=== PATIENT | male | born 2005 | race Hispanic/Latino ===

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

== ENCOUNTER 2025-01-07 03:29 | Emergency (ER) | payer OTHER, SELFPAY ==
--- NOTE | ~2025-01-07 | CT_ITS ---
Non-contrast CT scan of the Abdomen and Pelvis Clinical indication: Left flank pain Technique: 2.5 mm axial scans were obtained through the abdomen and pelvis without intravenous or or al contrast. Dose reduction technique was used on this scan by utilizing automated exposure control a nd iterative reconstruction technique. The dose-length product (DLP) was 1996.69 mGy-cm. Findings: Images through the lung bases reveal no abnormalities. 2 mm distal left ureteral stone present. No significant hydronephrosis. No other stones identified. There is diffuse hepatic steatosis. The spleen, pancreas, gallbladder, and adrenals appear normal. T here is no aortic aneurysm. There is no evidence of bowel obstruction. Images through the pelvis were performed. There is no evidence of ascites or lymphadenopathy. Urinary bladder unremarkable. No pelvic mass seen. No ascites. Impression: 2 mm distal left ureteral stone without significant hydronephrosis. Reviewed, dictated and finalized at [facility]. Impression: 2 mm distal left ureteral stone without significant hydronephrosis.
--- OUTSIDE RECORDS SUMMARY | 2025-01-07 03:31 | XMS_ITS | Referral Summary ---
Author Organization [facility] Address [address] [place] [id number] Care Team Providers Care Wood Drill Operator Name Role Phone No, Physician Primary Care Provider [phone] Allergies No known active allergies Social History Tobacco Use Types Packs/Day Years Used Date Smoking Tobacco: Never Assessed Personal Safety Answer Date Recorded Getting School Help Needed Not on file 08/26 Sex and Gender Information Value Date Recorded Sex Assigned at Not on file Legal Sex Male 12:07 PM VISUAL EDUCATION TEACHER Gender Identity Not on file Sexual Orientation Not on file Last Filed Vital Signs Vital Sign Reading Time Taken Comments Blood Pressure 137/66 08/15/2022 3:51 PM VISUAL EDUCATION TEACHER Pulse 72 08/15/2022 3:51 PM VISUAL EDUCATION TEACHER Temperature 36.8 C (98.2 F) 08/15/2022 12:16 PM VISUAL EDUCATION TEACHER Respiratory Rate 16 08/15/2022 3:51 PM VISUAL EDUCATION TEACHER Oxygen Saturation 99% 08/15/2022 3:51 PM VISUAL EDUCATION TEACHER Inhaled Oxygen Concentration - - Weight 119.8 kg (264 lb 1.8 oz) 023 12:16 PM VISUAL EDUCATION TEACHER Height 185.4 cm (6' 1) 08/15/2022 12:1 6 PM VISUAL EDUCATION TEACHER Body Mass Index 34.85 08/15/2022 12:16 PM VISUAL EDUCATION TEACHER Plan of Treatment Not on file Care Teams Wood Drill Operator Relationship Specialty Start Date End Date No, Physician PCP - General 08/15/22
--- OUTSIDE RECORDS SUMMARY | 2025-01-07 03:31 | XMS_ITS | Clinical Summary ---
Author Organization [facility] Address [address] [place] [id number] Care Team Providers Care Document Scanner Name Role Phone No, Physician Primary Care Provider [phone] Allergies No known active allergies Social History Tobacco Use Types Packs/Day Years Used Date Smoking Tobacco: Never Assessed Personal Safety Answer Date Recorded Getting School Help Needed Not on file 08/26 Sex and Gender Information Value Date Recorded Sex Assigned at Not on file Legal Sex Male 12:07 PM TALENT ACQUISITION COORDINATOR Gender Identity Not on file Sexual Orientation Not on file Last Filed Vital Signs Vital Sign Reading Time Taken Comments Blood Pressure 137/66 08/15/2022 3:51 PM TALENT ACQUISITION COORDINATOR Pulse 72 08/15/2022 3:51 PM TALENT ACQUISITION COORDINATOR Temperature 36.8 C (98.2 F) 08/15/2022 12:16 PM TALENT ACQUISITION COORDINATOR Respiratory Rate 16 08/15/2022 3:51 PM TALENT ACQUISITION COORDINATOR Oxygen Saturation 99% 08/15/2022 3:51 PM TALENT ACQUISITION COORDINATOR Inhaled Oxygen Concentration - - Weight 119.8 kg (264 lb 1.8 oz) 023 12:16 PM TALENT ACQUISITION COORDINATOR Height 185.4 cm (6' 1) 08/15/2022 12:1 6 PM TALENT ACQUISITION COORDINATOR Body Mass Index 34.85 08/15/2022 12:16 PM TALENT ACQUISITION COORDINATOR Plan of Treatment Health Maintenance Due Date Last Done Comments Depression Screening 2003 Hepatitis C Screening 2003 DTaP/Tdap/Td Vaccine (1 - Tdap) 2014 Varicella Vaccines (1 of 2 - 13+ 2-dose series) 2016 HPV Vaccines (1 - Male 3-dos e series) 2018 Meningococcal B Vaccine (1 o f 2 - Standard) 2019 Hepatitis B Screening 2021 Regular Well Visit/Exam 18-64 2021 Covid-19 Vaccine (3 - 2023-2 5 season) 2024 04/04/2021, 03/04/2021 Influenza Vaccine (#1) 2025 Meningococcal Vaccine Aged Out No kayli kenneth eligible based on patient's age to complete this topic Pneumococcal vaccine <65 Aged Out No longer eligible based on patient's age to complete this topic Care Teams Document Scanner Relationship Specialty Start Date End Date No, Physician PCP - General 08/15/22
--- OUTSIDE RECORDS SUMMARY | 2025-01-07 03:31 | XMS_ITS | Encounter Summary ---
Author Organization [facility] Address [address] [place] [id number] Care Team Providers Care Library Aide Name Role Phone Rosana Davila DO Primary Care Provider [phone] Encounter Details Date Type Department Care Team (Latest Contact Info) Description 08/27/2024 MyChart Message Enc [facility] - [place] [address] [place], [place] [id number] Rosana Davila DO [address] [place], [place] [id number] Question about meat intake Social History Tobacco Use Types Packs/Day Years Used Date Smoking Tobacco: Never Smokeless Tobacco: Never Comments:I use vapes Alcohol Use Standard Drinks/Week Comments Yes 2 (1 standard drink = 0.6 oz pur e alcohol) More socially PHQ-2 Answer Date Recorded Patient Health Questionnaire-2 Score 0 08/26/2024 Sex and Gender Information Value Date Recorded Sex Assigned at Male 08/26/2024 8:20 AM INTERLOCKING INSTALLER Legal Sex Male 3:38 PM INTERLOCKING INSTALLER Gender Identity Male 08/26/2024 8:20 AM INTERLOCKING INSTALLER Sexual Orientation Straight 09/23/2024 8: 25 AM CDT documented as of this encounter Plan of Treatment Upcoming Encounters Date Type Department Care Team (Late st Contact Info) Description 01/16/2025 7:40 AM CDT Office Visit [facility] [place] [address] [place], [place] [id number] Rosana Davila DO [address] [place] [address] documented as of this encounter Visit Diagnoses Not on filedocumented in this encounter Additional Health Concerns Assessment Noted Time PHQ-9 Depression Total Score: 1 08/27/19 25 8:23 AM INTERLOCKING INSTALLER documented as of this encounter Care Teams Library Aide Relationship Specialty Start Date End Date Rosana Davila DO [address] [place] [address] PCP - General FAMILY PRACTICE 07/12/24 02/18/25 documented as of this encounter
--- OUTSIDE RECORDS SUMMARY | 2025-01-07 03:31 | XMS_ITS | Clinical Summary ---
Author Organization [facility] Address [address] [place] [address] Care Team Providers Care Canteen Attendant Name Role Phone Unavailable Primary Care Provider Unavailabl e Immunizations Immunization Administration Dates Next Due Covid-19, Mrna, Lnp-s, Pf, 30 Mcg/0.3 Ml Dose (P fizer) 04/04/2021 Social History Tobacco Use Types Packs/Day Years Used Date Smoking Tobacco: Never Assessed Sex and Gender Information Value Date Recorded Sex Assigned at Not on file Legal Sex Male 1:48 PM CDT Gender Identity Not on file Sexual Orientation Not on file Plan of Treatment Health Maintenance Due Date Last Done Comments Hepatitis C Virus (HCV) Screening 2003 TdaP Immunization 2003 Human Papillomavirus (HPV) Immunization (1 - Male 3-dose series) 2018 Meningococcal B Immunization (1 of 2 - Standard) 2019 Hepatitis B Immunization (1 of 3 - 19+ 3-dose series) 2022 Influenza Immunization (#1) 2024 SARS-COV-2 Immunization (3 - 2023-25 season) 2024 04/04/2021, 03/04/2021 Respiratory Syncytial Virus (RSV) Immunization (Adult) (1 - 1-dose 75+ series) 2078 Meningococcal Immunization (ACWY) Aged Out No longer eligible b ased on patient's age to complete this topic Pneumococcal Immunization Combined Aged Out No longer eligible b ased on patient's age to complete this topic Rotavirus Immunization Aged Out No lo nger eligible based on patient's age to complete this topic
--- OUTSIDE RECORDS SUMMARY | 2025-01-07 03:31 | XMS_ITS | Encounter Summary ---
Author Organization [facility] Address [address] [place] [address] Care Team Providers Care Director Specialty Name Role Phone Rosana Davila DO Primary Care Provider [phone] Encounter Details Date Type Department Care Team (Latest Contact Info) Description 09/04/2024 MyChart Message Enc [facility] - [place] [address] [place] [address] oRsana Davila DO [address] [place] [address] Push back Appointment request Social History Tobacco Use Types Packs/Day Years Used Date Smoking Tobacco: Never Smokeless Tobacco: Never Comments:I use vapes Alcohol Use Standard Drinks/Week Comments Yes 2 (1 standard drink = 0.6 oz pur e alcohol) More socially PHQ-2 Answer Date Recorded Patient Health Questionnaire-2 Score 0 08/26/2024 Sex and Gender Information Value Date Recorded Sex Assigned at Male 08/26/2024 8:20 AM STONE UNLOADER Legal Sex Male 3:38 PM STONE UNLOADER Gender Identity Male 08/26/2024 8:20 AM STONE UNLOADER Sexual Orientation Straight 09/23/2024 8: 25 AM CDT documented as of this encounter Plan of Treatment Upcoming Encounters Date Type Department Care Team (Late st Contact Info) Description 01/16/2025 7:40 AM CDT Office Visit [facility] [place] [address] [place] [address] Rosana Davila DO [address] [place] [address] documented as of this encounter Visit Diagnoses Not on filedocumented in this encounter Additional Health Concerns Assessment Noted Time PHQ-9 Depression Total Score: 1 08/27/19 25 8:23 AM STONE UNLOADER documented as of this encounter Care Teams Director Specialty Relationship Specialty Start Date End Date Rosana aDvila DO [address] [place] [address] PCP - General FAMILY PRACTICE 07/12/24 02/18/25 documented as of this encounter
--- OUTSIDE RECORDS SUMMARY | 2025-01-07 03:32 | XMS_ITS | Clinical Summary ---
Author Organization [facility] Address [address] [place] [id number] Care Team Providers Care Bone Process Operator Name Role Phone Rosana Davila Primary Care Provider [phone] Allergies No known active allergies Medications hydrOXYzine (ATARAX) 25 MG tablet 1 tablet (25 mg total) as needed. 4 Active fluticasone propionate (FLONASE) 50 MCG/ACT nasal sprayIndication s:Seasonal allergic rhinitis, unspecified trigger SPRAY 1 SPRAY INTO EACH NOSTRIL DAILY FOR 30 DAYS. 16 mL 5 Active Additional Information Patient not taking.Reported on 12/30/2024 fluticasone propionate (FLONASE) 50 MCG/ACT nasal spray 1 spray by Nasal route daily. 5 Active lurasidone (LATUDA) 40 MG Tab tabletIndicatio ns:Bipolar 1 disorder, depressed, moderate (CMS/HCC HHS/HCC) Take 1 tablet (40 mg total) by mouth daily with breakfast. 90 tablet 1 5 025 Active traZODone (DESYREL) 50 MG tabletIndicatio ns:Bipolar 1 disorder, depressed, moderate (CMS/HCC HHS/HCC) Take 1 tablet (50 mg total) by mouth nightly at bedtime for 30 days. 30 tablet 5 025 Active lurasidone (LATUDA) 20 MG tablet Take 1 tablet (20 mg total) by mouth daily with breakfast. 5 025 Discontin ued(Reord er) Active Problems Problem Noted Date Diagnosed Date Insomnia due to medical condition 12/23/2024 Assessment & Plan (12/30/2024 5:30 PM CDT): See under bipolar disorder Elevated alanine aminotransferase (ALT) level Overview (09/23/2024): Component Ref Range & Units 08/26/24 0846 SODIUM S/P/B 136 - 145 MMOL/L 141 POTASSIUM S/P/B 3.5 - 5.1 MMOL/L 4.2 CHLORIDE S/P/B 98 - 107 MMOL/L 106 CO2 21 - 32 MMOL/L 24.6 GLUCOSE 70 - 99 MG/DL 103 High BUN 7 - 18 MG/DL 13 CREATININE S/P/B 0.70 - 1.30 MG/DL 0.89 CALCIUM S/P/B 8.4 - 10.5 MG/DL 8.9 BILIRUBIN TOTAL S/P/B 0.2 - 1.0 MG/DL 0.6 ALKALINE PHOSPHATASE S/P/B 45 - 115 U/L 82 AST 15 - 37 U/L 26 ALT 16 - 63 U/L 91 High TOTAL PROTEIN S/P/B 6.4 - 8.2 G/DL 6.9 ALBUMIN S/P/B 3.4 - 5.0 G/DL 3.8 ANION GAP 5 - 15 MMOL/L 10.4 Comment: REFERENCE RANGE NOT ESTABLISHED OSMOLALITY (CALC) MOSM/KG 292 Comment: REFERENCE RANGE NOT ESTABLISHED GFR ESTIMATE >90 ML/MIN/1.73 M2 >90 Assessment & Plan (09/23/2024 9:16 AM CDT): Discussed with patient that ALT is likely elevated due to fatty liver. Discussed dietary modifications with patient and exercise recommendations that can help improve this. Will plan to repeat within the next 6 months. Elevated fasting glucose 09/23/2024 Overview (09/23/2024): Component Ref Range & Units 08/26/24 0846 SODIUM S/P/B 136 - 145 MMOL/L 141 POTASSIUM S/P/B 3.5 - 5.1 MMOL/L 4.2 CHLORIDE S/P/B 98 - 107 MMOL/L 106 CO2 21 - 32 MMOL/L 24.6 GLUCOSE 70 - 99 MG/DL 103 High BUN 7 - 18 MG/DL 13 CREATININE S/P/B 0.70 - 1.30 MG/DL 0.89 CALCIUM S/P/B 8.4 - 10.5 MG/DL 8.9 BILIRUBIN TOTAL S/P/B 0.2 - 1.0 MG/DL 0.6 ALKALINE PHOSPHATASE S/P/B 45 - 115 U/L 82 AST 15 - 37 U/L 26 ALT 16 - 63 U/L 91 High TOTAL PROTEIN S/P/B 6.4 - 8.2 G/DL 6.9 ALBUMIN S/P/B 3.4 - 5.0 G/DL 3.8 ANION GAP 5 - 15 MMOL/L 10.4 Comment: REFERENCE RANGE NOT ESTABLISHED OSMOLALITY (CALC) MOSM/KG 292 Comment: REFERENCE RANGE NOT ESTABLISHED GFR ESTIMATE >90 ML/MIN/1.73 M2 >90 Assessment & Plan (09/23/2024 9:23 AM CDT): Fasting blood glucose elevated. Back office hemoglobin A1c ordered and completed today which returned within normal limits at Discussed dietary and exercise recommendations with patient. Vitamin D deficiency 09/23/2024 Overview (09/23/2024): Component Ref Range & Units 08/26/24 0846 VITAMIN D 25 HYDROXY TOTAL S/P/B 30 - 100 NG/ML 17.2 Low Assessment & Plan (09/23/2024 9:25 AM CDT): Recommend patient take vitamin D3 0543-3916 IU daily with food. Pure hypertriglyceridemia 09/23/2024 Overview (09/23/2024): Component Ref Range & Units 08/26/24 0846 CHOLESTEROL <200 MG/DL 181 TRIGLYCERIDES <150 MG/DL 262 High HDL >40 MG/DL 36 Low LDL-C <100 MG/DL 93 VLDL CALCULATION 5 - 28 MG/DL 52 High CHOL/HDL RATIO 0.0 - 4.0 5.0 High LDL/HDL 0.41 - 2.13 2.6 High NON HDL CHOLESTEROL <140 MG/DL 145 High Resulting Agency [facility] Assessment & Plan (09/23/2024 9:24 AM CDT): Discussed diet and exercise recommendations with patient. Bilateral impacted cerumen 09/23/2024 Assessment & Plan (09/23/2024 9:22 AM CDT): Bilateral cerumen impaction. Discussed with patient to avoid Q-tip use. Recommend he use nmxv-ydb-utequwt Debrox eardrops 10 drops in each ear twice daily for 4 days. He can then return for nurse visit for ear irrigation if interested. Reactive cervical lymphadenopathy 09/23/2024 Assessment & Plan (09/23/2024 9:24 AM CDT): Mild, anterior superficial cervical lymphadenopathy palpated on physical exam. Suspect this is related to patient's recent illness and expect to resolve within the next few weeks. Intermittent low back pain 09/23/2024 Overview (09/23/2024): 09/23/2024: He reports he is experiencing back pain since approximately a week after receiving flu vaccine. Denies back pain similar to this past. He describes pain being across his lower back. Reports stretching sometimes helped improve pain. Sometimes takes regular Tylenol unknown dose but 2 pills just as needed which helps get rid of pain. He reports back pain was constant for 2 weeks however has improved and is now only intermittently. He reports there were nights when he had difficulty sleeping due to back pain. He denied any injury prior to experiencing back pain. Assessment & Plan (09/23/2024 9:16 AM CDT): Discussed with patient that his back pain will likely resolve. If back pain worsens and/or fails to improve after another few weeks, discussed with patient that we may proceed with imaging such as with x-ray and/or recommend physical therapy. Discussed with patient that instead of Tylenol, he can use ibuprofen 600 mg oral every 6 hours with food as needed for low back pain. Prediabetes 09/23/2024 Assessment & Plan (09/23/2024 9:31 AM CDT): Hemoglobin A1c returned 5.7%. This was communicated to patient through [facility]. Recommend he participate in diet and exercise recommendations that we discussed at annual physical exam today. Seasonal allergic rhinitis, unspecified trigger 08/26/2024 Overview (08/26/2024): 08/26/2024: He reports he has had watery eyes and nasal symptoms. He denies fever, chills or bodyaches. He reports he occasionally uses hydroxyzine to help him sleep however he has a hard time waking up in the morning. Assessment & Plan (08/26/2024 9:17 AM LOCOMOTIVE OPERATOR): Discussed with patient that he can use gyxz-sfx-tgzexrh second-generation antihistamine like Claritin or Zyrtec or Marivel that will likely not make him sleepy or drowsy. He can also use eelr-iku-pjzeyfu Pataday eyedrops and I recommend he use nasal fluticasone 1 spray daily during this time. He is counseled how to use nasal spray appropriately. Peroneal tendinitis of left lower extremity 08/2024 Overview (08/26/2024): 07/29/2024: He reports he has had pain in his left foot for 1 to 2 months. He reports is gotten worse over time. He denies any memorable trauma or injury. He reports that it is painful when he puts his shoes on. 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 He reports he notices swelling on a regular basis in his left ankle. He denies any overlying rash or color change. He reports that he has not changed shoes recently. He reports he has not been taking anything for pain. 08/26/2024: He reports his pain has improved. Assessment & Plan (08/26/2024 9:22 AM LOCOMOTIVE OPERATOR): Will continue to monitor. Can refer to physical therapy if needed. Assessment & Plan (07/29/2024 7:57 AM LOCOMOTIVE OPERATOR): Based on physical exam and patient's history, I suspect patient has peroneal tendinitis of left foot. He is counseled on mainstays of therapy which includes RICE therapy and can also include physical therapy. He reports he does not want to go to physical therapy at this time due to his busy schedule. He is counseled that he can take up to 600 mg of ibuprofen every 6 hours as needed with food for pain and swelling. Uses marijuana 07/15/2024 Overview (12/23/2024): Initial visit 07/15/2024: He reports he smokes, vapes and uses Gummies on a regular basis. 07/29/2024: He reports he has only smoked 3-4 times since last appointment. 12/23/2024: He reports over the last month he has increased his marijuana use in attempt to help with sleeping. He reports has not helped with his sleeping. Assessment & Plan (12/23/2024 10:00 AM CDT): He is counseled to decrease marijuana use Assessment & Plan (07/29/2024 7:59 AM LOCOMOTIVE OPERATOR): Patient counseled to continue decreasing marijuana use and ideally to not use it at all. Assessment & Plan (07/15/2024 8:10 AM LOCOMOTIVE OPERATOR): He was counseled at length to discontinue marijuana use especially in the setting of bipolar disorder as it can predispose psychosis or other issues. Bipolar 1 disorder, depressed, moderate ([facility]) 07/15/2024 Overview (12/30/2024): Regimen: Lurasidone 40 mg daily Initial visit 07/15/2024: He reports he was diagnosed with bipolar disorder when he was an inpatient in April 2023 at [facility] and started on Depakote 2, 100 mg tablets daily while an inpatient. He reports as an outpatient, he was then started on Lamictal. He reports he took Lamictal up until 2 to 3 months ago as he felt like his brain was numb. He reports he was on sertraline prior to being in patient. 07/15/2024 7:48 AM PHQ-9 Score Patient Health Questionnaire-9 Score 21 07/29/2024: He reports he is taking Latuda 20 mg daily in the evening as he does not routinely eat until approximately 3 PM. He reports it took about 5 days to start feeling in a straight line and feeling less depressed. He reports he is surprised and only took a week to feel different. He reports people such as his girlfriend have noticed his mood change. He reports last night was the first time he had any anxiety but it was mild. He reports he was unable to sleep last night as he worked late and was nervous about missing this appointment but otherwise is sleeping better. He denies suicidal ideation and homicidal ideation. PHQ-9: 07/29/2024 7:32 AM 07/15/2024 7:48 AM PHQ2/PHQ 9 DEPRESSION SCREEN QUESTIONAIRE Little interest or pleasure in doing things Several days Almost all Feeling down, depressed, or hopeless Not at all Several days Patient Health Questionnaire-2 Score 1 4 Trouble falling or staying asleep, or sleeping too much Over half Almost all Feeling tired or having little energy Over half Almost all Poor appetite or overeating Several days Almost all Feeling bad about yourself - or that you are a failure or have let yourself or your family down Not at all Not at all Trouble concentrating on things, such as reading the newspaper or watching television Not at all Almost all Moving or speaking so slowly that other people could have noticed? Or the opposite - being so fidgety or restless that you have been moving around a lot more than usual. Not at all Almost all Thoughts that you would be better off or hurting yourself in some way Not at all Over half Patient Health Questionnaire-9 Score 6 21 How difficult have these problems made it for you to do your work, take care of things at home, or get along with other people? Not difficult at all Very difficult 08/26/2024: He reports he is still doing well on his current dose of lurasidone 20 mg daily. He reports he occasionally has difficulty sleeping and takes hydroxyzine 25 mg as needed. PHQ-9: 08/26/2024 8:23 AM 07/29/2024 7:32 AM PHQ2/PHQ 9 DEPRESSION SCREEN QUESTIONAIRE Little interest or pleasure in doing things Not at all Several days Feeling down, depressed, or hopeless Not at all Not at all Patient Health Questionnaire-2 Score 0 1 Trouble falling or staying asleep, or sleeping too much Several days Over half Feeling tired or having little energy Not at all Over half Poor appetite or overeating Not at all Several days Feeling bad about yourself - or that you are a failure or have let yourself or your family down Not at all Not at all Trouble concentrating on things, such as reading the newspaper or watching television Not at all Not at all Moving or speaking so slowly that other people could have noticed? Or the opposite - being so fidgety or restless that you have been moving around a lot more than usual. Not at all Not at all Thoughts that you would be better off or hurting yourself in some way Not at all Not at all Patient Health Questionnaire-9 Score 1 6 How difficult have these problems made it for you to do your work, take care of things at home, or get along with other people? Not difficult at all Not difficult at all 12/23/2024: He reports he has been experiencing difficulty sleeping over the last 3-4 weeks and has increased his marijuana use. PHQ-9: 12/23/2024 9:46 AM 09/23/2024 8:29 AM PHQ2/PHQ 9 DEPRESSION SCREEN QUESTIONAIRE Little interest or pleasure in doing things Not at all Several days Feeling down, depressed, or hopeless Not at all Not at all Patient Health Questionnaire-2 Score 0 1 Trouble falling or staying asleep, or sleeping too much Almost all Over half Feeling tired or having little energy Almost all Over half Poor appetite or overeating Almost all Over half Feeling bad about yourself - or that you are a failure or have let yourself or your family down Not at all Not at all Trouble concentrating on things, such as reading the newspaper or watching television Not at all Not at all Moving or speaking so slowly that other people could have noticed? Or the opposite - being so fidgety or restless that you have been moving around a lot more than usual. Not at all Not at all Thoughts that you would be better off or hurting yourself in some way Not at all Not at all Patient Health Questionnaire-9 Score 9 7 How difficult have these problems made it for you to do your work, take care of things at home, or get along with other people? Very difficult Not difficult at all 12/30/2024: He reports his mood has improved since increasing Latuda to 40 mg daily. He reports he still having difficulty sleeping and is only able to get 4 to 5 hours a night. PHQ-9: 12/30/2024 5:00 PM 12/23/2024 9:46 AM PHQ2/PHQ 9 DEPRESSION SCREEN QUESTIONAIRE Little interest or pleasure in doing things Several days Not at all Feeling down, depressed, or hopeless Several days Not at all Patient Health Questionnaire-2 Score 2 0 Trouble falling or staying asleep, or sleeping too much Almost all Almost all Feeling tired or having little energy Almost all Almost all Poor appetite or overeating Over half Almost all Feeling bad about yourself - or that you are a failure or have let yourself or your family down Not at all Not at all Trouble concentrating on things, such as reading the newspaper or watching television Not at all Not at all Moving or speaking so slowly that other people could have noticed? Or the opposite - being so fidgety or restless that you have been moving around a lot more than usual. Not at all Not at all Thoughts that you would be better off or hurting yourself in some way Not at all Not at all Patient Health Questionnaire-9 Score 10 9 How difficult have these problems made it for you to do your work, take care of things at home, or get along with other people? Very difficult Very difficult Assessment & Plan (12/30/2024 5:30 PM CDT): Continue lurasidone 40 mg daily. Patient counseled again to take with largest meal of day. Will add trazodone 50 mg nightly. Patient counseled to start taking 30 minutes to 1 hour prior to scheduled bedtime. After few nights, if not effective can increase to 100 mg nightly. Patient counseled that this medication could make him drowsy in the morning and he is to consider his schedule. Assessment & Plan (12/23/2024 10:00 AM CDT): PHQ-9 score has worsened. Patient is having difficulty sleeping. Would like to increase his Latuda to 40 mg daily. Patient is agreeable. Counseled to decrease marijuana use. He is provided resource to help find licensed counseling provider. If he acutely worsens, I would like him to be seen prior to his next appointment. Assessment & Plan (08/26/2024 9:21 AM LOCOMOTIVE OPERATOR): PHQ-9 score has improved again from last visit. Continue lurasidone 20 mg daily. Attempting again to request records from patient's inpatient psych stay at [place] in 2022. Assessment & Plan (07/29/2024 7:58 AM LOCOMOTIVE OPERATOR): Continue Latuda 20 mg daily at this time. Instructed again to take with at least 350 migdalia. Requested records from patient's inpatient psych stay at [facility] in 2022. Assessment & Plan (07/15/2024 8:19 AM LOCOMOTIVE OPERATOR): I suspect sertraline precipitated a manic episode. Will need to request records from hospitalization. At this time, I would like to start lurasidone/Latuda mood stabilizer at lowest dose 20 mg once daily. Patient instructed to take with at least 350 migdalia. He is counseled that this should not contribute to any weight gain. He is counseled to notify the clinic if he experiences any adverse effects. Class 2 obesity without seri ous comorbidity with body mass index (BMI) of 37.0 to 37.9 in adult, unspecified obesity type 07/15/2024 Overview (12/30/2024): Initial visit 07/15/2024: He reports [place] ago he was 100 kg in weight and has gained weight after started on medication. 07/29/2024: He reports he has started going to the gym. He is asking advice on nutrition/working with dietitian. 12/30/2024: He reports he would like to lose weight. Assessment & Plan (12/30/2024 5:31 PM CDT): Discussed dietary and exercise recommendations with patient. Discussed that I could add medication due to prediabetes diagnosis however he is not interested at this time. Patient counseled on decreasing processed foods and sugary beverages and drinks and increase dietary fiber. Assessment & Plan (09/23/2024 9:23 AM CDT): Discussed dietary and exercise recommendations with patient. Assessment & Plan (07/29/2024 7:59 AM LOCOMOTIVE OPERATOR): Counseled that I recommend he work with registered dietitian in order to get more comprehensive guidance on his diet. 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 Baseline labs ordered to be collected fasting. Assessment & Plan (07/15/2024 8:09 AM LOCOMOTIVE OPERATOR): Discussed with him that many medications used in treatment of bipolar disorder can contribute to weight gain. We are starting a new medication that should not contribute to any weight gain. Vaping nicotine dependence, non-tobacco product 07/15/2024 Overview (09/23/2024): 08/26/2024: He reports his vaping is slowing down 09/23/2024: Assessment & Plan (08/26/2024 9:20 AM LOCOMOTIVE OPERATOR): Continue to encourage smoking cessation Rib pain on left side 07/15/2024 Overview (07/29/2024): Initial visit 07/15/2024: He reports that he had a skateboard accident in 2022 which resulted in concussion and ankle injury. He reports he has had pain in the left side of his chest since then. He reports I have a ball. He reports that certain movements cause cramp or painful twisting. He is unsure if he hit his chest during skateboard accident. He reports he was told that as a kid his pain receptors are low. 07/29/2024: He reports this pain has almost completely resolved. Chest x-ray was negative for fracture or abnormality. Assessment & Plan (07/29/2024 7:55 AM LOCOMOTIVE OPERATOR): He is counseled to monitor and bring up if returns and/or continues to bother him. Assessment & Plan (07/15/2024 8:18 AM LOCOMOTIVE OPERATOR): Rib x-ray ordered to evaluate chronic left rib tenderness and pain. He reports he was evaluated for TB prior to starting college. Chronic rhinitis 07/15/2024 Overview (07/15/2024): Initial visit 07/15/2024: He reports he has rhinitis Resolved Problems Problem Noted Date Diagnosed Date Resolved Date Need for immunization against influenza 08/26/2024 09/20/2024 Overview (09/20/2024): 08/26/2024: He reports he does not want to get flu vaccine this week but has bring back next week and can get flu vaccine then Encounters Date Type Department Care Team Description 12/30/2024 4:00 PM CDT Office Visit [facility] [address] [place] [address] Rosana Davila, DO Mood Swings (Bi-Polar Disorder) (Follow up. /); Psychiatric Problem (Patient feels like he is doing well on medications currently. He does say that increasing the medication did not work for sleep at all. He is still having a very hard time sleeping and says that he usually gets 4-5 hours or he feels ill when he does wake up. ) 12/30/2024 Travel 12/23/2024 9:20 AM CDT Office Visit [facility] [address] [place] [address] Rosana Davila, DO Bipolar Disorder (3 mo follow up. /No questions or concerns today. /Pt states the medication is doing well for him. /) 12/23/2024 Travel from Last 3 Months Immunizations Immunization Administration Dates Next Due Fluzone (IIV3, Trivalent, 0. 5 ML Prefilled Syringe) 09/02/2024 Hepatitis B 09/16/2023,2003,2003 MMR (Generic) 01/07/2009,04/21/2004 Meningococcal (Generic) 11/11/2020 PFIZER COVID-19 (ORIGINAL FO RMULATION, PURPLE CAP) mRNA, LNP-S, PF, 30 MCG/0.3 ML DOSE 03/25/2021,03/04/2021 Tdap (Generic) 10/25/2022,03/30/2021 Family History Medical History Relation Comments Alcohol Abuse Father My Biological fa ther No Known Problems Half-sister 1 No Known Problems Half-sister 2 Arthritis Maternal Grandfather Cancer Maternal Grandfather Hypertension Maternal Grandfather Arthritis Maternal Grandmother Diabetes Maternal Grandmother Hypertension Maternal Grandmother Depression Mother Was not too deep studied but was diagnosed Hypertension Mother Miscarriages / Stillbirths Mother Relation Status Comments Father Unknown Half-sister 1 Unknown Half-sister 2 Unknown Maternal Grandfather Maternal Grandmother Alive Mother Alive Paternal Grandfather Unknown Paternal Grandmother Unknown Social History Tobacco Use Types Packs/Day Years Used Date Smoking Tobacco: Never Smokeless Tobacco: Never Tobacco Cessation:Counseling Given: Not Answered Comments:I use vapes Alcohol Use Standard Drinks/Week Comments Yes 2 (1 standard drink = 0.6 oz pur e alcohol) More socially PHQ-2 Answer Date Recorded Patient Health Questionnaire-2 Score 2 12/30/2024 Sex and Gender Information Value Date Recorded Sex Assigned at Male 08/26/2024 8:20 AM LOCOMOTIVE OPERATOR Legal Sex Male 3:38 PM LOCOMOTIVE OPERATOR Gender Identity Male 08/26/2024 8:20 AM LOCOMOTIVE OPERATOR Sexual Orientation Straight 09/23/2024 8: 25 AM CDT Last Filed Vital Signs Vital Sign Reading Time Taken Comments Blood Pressure 125/83 12/30/2024 4:18 PM CDT Pulse 71 12/30/2024 4:18 PM CDT Temperature 35.9 C (96.7 F) 12/30/2024 4:18 PM CDT Respiratory Rate 16 12/23/2024 9:29 AM CDT Oxygen Saturation 94% 12/30/2024 4:18 PM CDT Inhaled Oxygen Concentration - - Weight 128.4 kg (283 lb) 12/30/2024 4:18 PM CDT Height 185.4 cm (6' 1) 12/30/2024 4:18 PM CDT Body Mass Index 37.34 12/30/2024 4:18 PM CDT Plan of Treatment Upcoming Encounters Date Type Department Care Team (Late st Contact Info) Description 01/16/2025 7:40 AM CDT Office Visit [facility] [address] [facility] [address] [place] [address] Rosana Davila, [address] [place] [address] Health Maintenance Due Date Last Done Comments HPV Vaccines (1 - Male 3-dos e series) 2018 COVID-19 Vaccine (3 - 202-2 5 season) 2025 03/25/2021, 03/04/2021 Postponed from 02/25/2024 (Patient Refused) Meningococcal B Vaccine (1 o f 2 - Standard) 08/26/2025 Postponed from 03/19 (Patient Refused) Annual Physical 09/23/2025 09/23/2024 DTaP, Tdap and Td Vaccines ( 3 - Td or Tdap) 10/25/2032 10/25/2022, 03/30/2021 Meningococcal Vaccine Aged Out 11/11/2020 No kayli kenneth eligible based on patient's age to complete this topic Hepatitis B Vaccines Completed 09/16/2023, 2003, 2003 Hepatitis C Completed 08/26/2024 PHQ-2 (Physician [place]) Completed 12/30/2024 Pneumococcal Vaccine: Pediatrics (0 to 5 Years) and At-Risk Patients (6 to 49 Years) Aged Out No longer eligible b ased on patient's age to complete this topic RSV Immunizations Under 20 Months Aged Out No longer eligible b ased on patient's age to complete this topic Procedures Procedure Name Priority Date/Time Associated Diagnosis Comments HEPATITIS C ANTIBODY Routine 08/26/2024 9:00 AM LOCOMOTIVE OPERATOR Encounter for hepatitis C screening test for low risk patient from Last 3 Months or Most Recently Relevant to Health Maintenance Results * HEPATITIS C ANTIBODY (08/26/2024 9:00 AM LOCOMOTIVE OPERATOR) HEPATITIS C AB NON-REACTI VE NON-REACT BRANDI 08/26/2024 7:02 PM LOCOMOTIVE OPERATOR [facility] Comment: ANTIBODIES TO HCV NOT DETECTED. DOES NOT EXCLUDE THE POSSIBILITY OF EXPOSURE TO HCV. 08/26/2024 9:00 AM LOCOMOTIVE OPERATOR Rosana M Giovanni DO LABORATORY Final Result [facility] [address] [place] [address], [id number] from Last 3 Months or Most Recently Relevant to Health Maintenance Insurance [facility] Care Teams Bone Process Operator Relationship Specialty Start Date End Date Rosana Davila DO [address] [place] [address] PCP - General FAMILY PRACTICE 07/12/24 02/18/25
[2025-01-07 03:39] VITALS: BP 135/73; PULSE 85; RESP 20; TEMP 36.9; O2SAT 95
[2025-01-07 03:44] VITALS: BP 135/73; O2SAT 96
[2025-01-07 03:46] VITALS: BP 135/73; PULSE 82; RESP 20; TEMP 36.9; O2SAT 96
--- OUTSIDE RECORDS SUMMARY | 2025-01-07 03:53 | XMS_ITS | Clinical Summary ---
Author Organization [facility] Address [address] [place] [address] Care Team Providers Care International Exchange Coordinator Name Role Phone Rosana Davila Primary Care Provider [phone] Allergies No known active allergies Medications hydrOXYzine [...] AM CDT): Recommend patient take vitamin D3 3100-0673 IU daily with food. Pure hypertriglyceridemia 09/23/2024 [...] to avoid Q-tip use. Recommend he use ymhy-wfw-eqlttap Debrox eardrops 10 drops in each ear [...] 5.7%. This was communicated to patient through [place]. Recommend he participate in diet and exercise [...] morning. Assessment & Plan (08/26/2024 9:17 AM MEDICAL CLAIMS REPRESENTATIVE): Discussed with patient that he can use wxew-uss-zyskdds second-generation antihistamine like Claritin or Zyrtec or Marivel that will likely not make him sleepy or drowsy. 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 He reports he notices swelling on a regular basis in his left ankle. He denies any overlying rash or color change. He reports that he has not changed shoes recently. He reports he has not been taking anything for pain. 08/26/2024: He reports his pain has improved. Assessment & Plan (08/26/2024 9:22 AM MEDICAL CLAIMS REPRESENTATIVE): Will continue to monitor. Can refer to physical therapy if needed. Assessment & Plan (07/29/2024 7:57 AM MEDICAL CLAIMS REPRESENTATIVE): Based on physical exam and patient's history, [...] use Assessment & Plan (07/29/2024 7:59 AM MEDICAL CLAIMS REPRESENTATIVE): Patient counseled to continue decreasing marijuana use and ideally to not use it at all. Assessment & Plan (07/15/2024 8:10 AM MEDICAL CLAIMS REPRESENTATIVE): He was counseled at length to discontinue marijuana use especially in the setting of bipolar disorder as it can predispose psychosis or other issues. Bipolar 1 disorder, depressed, moderate ([facility]) 07/15/2024 Overview (12/30/2024): Regimen: Lurasidone 40 mg daily Initial visit 07/15/2024: He reports he was diagnosed with bipolar disorder when he was an inpatient in April 2023 at [facility] and started on Depakote 2, 100 mg [...] appointment. Assessment & Plan (08/26/2024 9:21 AM MEDICAL CLAIMS REPRESENTATIVE): PHQ-9 score has improved again from last visit. Continue lurasidone 20 mg daily. Attempting again to request records from patient's inpatient psych stay at [facility] in 2022. Assessment & Plan (07/29/2024 7:58 AM MEDICAL CLAIMS REPRESENTATIVE): Continue Latuda 20 mg daily at this time. Instructed again to take with at least 350 migdalia. Requested records from patient's inpatient psych stay at [facility] in 2022. Assessment & Plan (07/15/2024 8:19 AM MEDICAL CLAIMS REPRESENTATIVE): I suspect sertraline precipitated a manic episode. [...] patient. Assessment & Plan (07/29/2024 7:59 AM MEDICAL CLAIMS REPRESENTATIVE): Counseled that I recommend he work with registered dietitian in order to get more comprehensive guidance on his diet. He can look into online options such as [employer] which may accept his insurance and give him flexibility as he is a college student with 2 jobs at this time. Baseline labs ordered to be collected fasting. Assessment & Plan (07/15/2024 8:09 AM MEDICAL CLAIMS REPRESENTATIVE): Discussed with him that many medications used in treatment of bipolar disorder can contribute to weight gain. We are starting a new medication that should not contribute to any weight gain. Vaping nicotine dependence, non-tobacco product 07/15/2024 Overview (09/23/2024): 08/26/2024: He reports his vaping is slowing down 09/23/2024: Assessment & Plan (08/26/2024 9:20 AM MEDICAL CLAIMS REPRESENTATIVE): Continue to encourage smoking cessation Rib pain [...] abnormality. Assessment & Plan (07/29/2024 7:55 AM MEDICAL CLAIMS REPRESENTATIVE): He is counseled to monitor and bring up if returns and/or continues to bother him. Assessment & Plan (07/15/2024 8:18 AM MEDICAL CLAIMS REPRESENTATIVE): Rib x-ray ordered to evaluate chronic left [...] Description 12/30/2024 4:00 PM CDT Office Visit [facility] [address] [place] [address] Rosana Davila, DO Mood Swings (Bi-Polar Disorder) [...] Travel 12/23/2024 9:20 AM CDT Office Visit [facility] [address] [place] [address] Rosana Davila, DO Bipolar Disorder (3 mo [...] Sex Assigned at Male 08/26/2024 8:20 AM MEDICAL CLAIMS REPRESENTATIVE Legal Sex Male 3:38 PM MEDICAL CLAIMS REPRESENTATIVE Gender Identity Male 08/26/2024 8:20 AM MEDICAL CLAIMS REPRESENTATIVE Sexual Orientation Straight 09/23/2024 8: 25 AM [...] Description 01/16/2025 7:40 AM CDT Office Visit [facility] [place] [address] [place] [address] Rosana Davila, [address] [place] [address] Health Maintenance Due Date Last Done Comments [...] 2003 Hepatitis C Completed 08/26/2024 PHQ-2 (Physician [place]) Completed 12/30/2024 Pneumococcal Vaccine: Pediatrics (0 to [...] HEPATITIS C ANTIBODY Routine 08/26/2024 9:00 AM MEDICAL CLAIMS REPRESENTATIVE Encounter for hepatitis C screening test for low risk patient from Last 3 Months or Most Recently Relevant to Health Maintenance Results * HEPATITIS C ANTIBODY (08/26/2024 9:00 AM MEDICAL CLAIMS REPRESENTATIVE) HEPATITIS C AB NON-REACTI VE NON-REACT BRANDI 08/26/2024 7:02 PM MEDICAL CLAIMS REPRESENTATIVE [facility] Comment: ANTIBODIES TO HCV NOT DETECTED. DOES NOT EXCLUDE THE POSSIBILITY OF EXPOSURE TO HCV. 08/26/2024 9:00 AM MEDICAL CLAIMS REPRESENTATIVE Rosana M Giovanni DO LABORATORY Final Result [facility] [address] [place] [address], [id number] from Last 3 Months or Most Recently Relevant to Health Maintenance Insurance [facility] Care Teams International Exchange Coordinator Relationship Specialty Start Date End Date Rosana Davila DO [address] [place] [address] PCP - General FAMILY PRACTICE 07/12/24 02/18/25
--- OUTSIDE RECORDS SUMMARY | 2025-01-07 03:53 | XMS_ITS | Clinical Summary ---
Author Organization [facility] Address [address] [place] [id number] Care Team Providers Care Manager Garage Name Role Phone No, Physician Primary Care Provider [phone] Allergies No known active allergies Social History Tobacco Use Types Packs/Day Years Used Date Smoking Tobacco: Never Assessed Personal Safety Answer Date Recorded Getting School Help Needed Not on file 08/26 Sex and Gender Information Value Date Recorded Sex Assigned at Not on file Legal Sex Male 12:07 PM PUNCH MACHINE OPERATOR Gender Identity Not on file Sexual Orientation Not on file Last Filed Vital Signs Vital Sign Reading Time Taken Comments Blood Pressure 137/66 08/15/2022 3:51 PM PUNCH MACHINE OPERATOR Pulse 72 08/15/2022 3:51 PM PUNCH MACHINE OPERATOR Temperature 36.8 C (98.2 F) 08/15/2022 12:16 PM PUNCH MACHINE OPERATOR Respiratory Rate 16 08/15/2022 3:51 PM PUNCH MACHINE OPERATOR Oxygen Saturation 99% 08/15/2022 3:51 PM PUNCH MACHINE OPERATOR Inhaled Oxygen Concentration - - Weight 119.8 kg (264 lb 1.8 oz) 023 12:16 PM PUNCH MACHINE OPERATOR Height 185.4 cm (6' 1) 08/15/2022 12:1 6 PM PUNCH MACHINE OPERATOR Body Mass Index 34.85 08/15/2022 12:16 PM PUNCH MACHINE OPERATOR Plan of Treatment Health Maintenance Due Date [...] age to complete this topic Care Teams Manager Garage Relationship Specialty Start Date End Date No, Physician PCP - General 08/15/22
--- OUTSIDE RECORDS SUMMARY | 2025-01-07 03:53 | XMS_ITS | Referral Summary ---
Author Organization [facility] Address [address] [place] [address] Care Team Providers Care Cutting And Printing Machine Operator Name Role Phone No, Physician Primary Care Provider [phone] Allergies No known active allergies Social History Tobacco Use Types Packs/Day Years Used Date Smoking Tobacco: Never Assessed Personal Safety Answer Date Recorded Getting School Help Needed Not on file 08/26 Sex and Gender Information Value Date Recorded Sex Assigned at Not on file Legal Sex Male 12:07 PM MANAGER DIALYSIS Gender Identity Not on file Sexual Orientation Not on file Last Filed Vital Signs Vital Sign Reading Time Taken Comments Blood Pressure 137/66 08/15/2022 3:51 PM MANAGER DIALYSIS Pulse 72 08/15/2022 3:51 PM MANAGER DIALYSIS Temperature 36.8 C (98.2 F) 08/15/2022 12:16 PM MANAGER DIALYSIS Respiratory Rate 16 08/15/2022 3:51 PM MANAGER DIALYSIS Oxygen Saturation 99% 08/15/2022 3:51 PM MANAGER DIALYSIS Inhaled Oxygen Concentration - - Weight 119.8 kg (264 lb 1.8 oz) 023 12:16 PM MANAGER DIALYSIS Height 185.4 cm (6' 1) 08/15/2022 12:1 6 PM MANAGER DIALYSIS Body Mass Index 34.85 08/15/2022 12:16 PM MANAGER DIALYSIS Plan of Treatment Not on file Care Teams Cutting And Printing Machine Operator Relationship Specialty Start Date End Date No, Physician PCP - General 08/15/22
--- OUTSIDE RECORDS SUMMARY | 2025-01-07 03:53 | XMS_ITS | Encounter Summary ---
Author Organization [facility] Address [address] [place] [address] Care Team Providers Care Cloud Solutions Architect Name Role Phone Rosana Davila DO Primary Care Provider [phone] Encounter Details Date Type Department Care Team (Latest Contact Info) Description 08/27/2024 MyChart Message Enc [facility] Medical [facility] - [place] [address] [place], [place] [id number] Rosana Davila DO [address] [place], [place] [id number] Question about meat intake Social History Tobacco [...] Sex Assigned at Male 08/26/2024 8:20 AM RESPIRATORY MANAGER Legal Sex Male 3:38 PM RESPIRATORY MANAGER Gender Identity Male 08/26/2024 8:20 AM RESPIRATORY MANAGER Sexual Orientation Straight 09/23/2024 8: 25 AM CDT documented as of this encounter Plan of Treatment Upcoming Encounters Date Type Department Care Team (Late st Contact Info) Description 01/16/2025 7:40 AM CDT Office Visit [facility] Medical [facility] [place] [address] [place], [place] [id number] Rosana Davila DO [address] [place] [address] documented as of this encounter Visit Diagnoses Not on filedocumented in this encounter Additional Health Concerns Assessment Noted Time PHQ-9 Depression Total Score: 1 08/27/19 25 8:23 AM RESPIRATORY MANAGER documented as of this encounter Care Teams Cloud Solutions Architect Relationship Specialty Start Date End Date Rosana Davila DO [address] [place] [address] PCP - General FAMILY PRACTICE 07/12/24 02/18/25 documented as of this encounter
--- OUTSIDE RECORDS SUMMARY | 2025-01-07 03:53 | XMS_ITS | Clinical Summary ---
Author Organization [facility] Address [address] [place] [address] Care Team Providers Care Music Specialist Name Role Phone Unavailable Primary Care Provider [...]
--- OUTSIDE RECORDS SUMMARY | 2025-01-07 03:53 | XMS_ITS | Encounter Summary ---
Author Organization [facility] Address [address] [place] [address] Care Team Providers Care Lode Miner Name Role Phone Rosana Davila DO Primary Care Provider [phone] Encounter Details Date Type Department Care Team (Latest Contact Info) Description 09/04/2024 MyChart Message Enc [facility] Medical [facility] - [place] [address] [place] [address] Rosana Davila DO [address] [place] [address] Push back Appointment request Social History Tobacco [...] Sex Assigned at Male 08/26/2024 8:20 AM WAITER/WAITRESS CABIN CLASS Legal Sex Male 3:38 PM WAITER/WAITRESS CABIN CLASS Gender Identity Male 08/26/2024 8:20 AM WAITER/WAITRESS CABIN CLASS Sexual Orientation Straight 09/23/2024 8: 25 AM CDT documented as of this encounter Plan of Treatment Upcoming Encounters Date Type Department Care Team (Late st Contact Info) Description 01/16/2025 7:40 AM CDT Office Visit [facility] Medical [facility] - [place] [address] [place] [address] Rosana Davila DO [address] [place] [address] documented as of this encounter Visit Diagnoses Not on filedocumented in this encounter Additional Health Concerns Assessment Noted Time PHQ-9 Depression Total Score: 1 08/27/19 25 8:23 AM WAITER/WAITRESS CABIN CLASS documented as of this encounter Care Teams Lode Miner Relationship Specialty Start Date End Date Rosana Davila DO [address] [place] [address] PCP - General FAMILY PRACTICE 07/12/24 02/18/25 documented as of this encounter
[2025-01-07] MEDS: KETOROLAC 15 MG/ML VIAL (*BKC) IV PUSH (04:14)
[2025-01-07] MEDS: ONDANSETRON INJ 4 MG/2 ML VIAL IV PUSH (04:14)
[2025-01-07] MEDS: SODIUM CHLORIDE 0.9% IV 1,000 ML 999 ML IV CONT (04:14)
[2025-01-07 04:16] LABS: Hematocrit 48.1 % (42.0-52.0); Hemoglobin 15.7 g/dL (14.0-18.0); Immature Granulocyte Percent A 0.2 % (0-0.5); Lymphocytes Absolute Auto 2.66 K/mm3 (0.9-3.2); Mean Corpuscular HGB Conc 32.6 g/dl (32-36); Mean Corpuscular Hemoglobin 28.3 pg (26-34); Mean Corpuscular Volume 86.8 fl (80-100); Nucleated Red Blood Cells Absolute Auto 0.000 K/mm3 (0.0-0.012); Nucleated Red Blood Cells Perc 0.0 % (0.0-0.2); Platelet Count Result 308 k/mm3 (150-375); Red Blood Count 5.54 M/mm3 (4.6-6.20); White Blood Count 9.4 K/mm3 (4.5-10.0)
--- NOTE | 2025-01-07 04:16 | ED.BACK ---
HPI - Back Pain/Injury General Chief Complaint: Back Pain/Injury Stated Complaint: lower left back pain, bloating Time Seen by Provider: 01/07/25 03:50 History of Present Illness HPI Narrative: Patient is a 19-year-old male who presents the emergency department this evening complaining of left-sided flank pain radiating to his left lower quadrant. States that the pain started around 10:00 p.m. last night. Denies any history of kidney stones. Patient states that he took ibuprofen an hour ago with no relief. He states that when he urinates he feels as though he is having a difficult time urinating and he is not fully emptying his bladder. Denies any recent illness fevers or chills. Patient states that he lifted a heavy keg a few days ago and thought that maybe this could be contributing to his symptoms. No additional symptoms or concerns. Related Data Home Medications ?Medication ?Instructions ?Recorded ?Confirmed ?Last Taken ?Type levothyroxine 25 mcg tablet 25 mcg PO DAILY 10/25/22 Unknown History sertraline 25 mg tablet 25 mg PO DAILY 10/25/22 Unknown History Allergies Allergy/AdvReac Type Severity Reaction Status Date / Time No Known Allergies Allergy Verified 01/07/25 03:30 Review of Systems Review of Systems: All systems are reviewed and are negative unless stated otherwise in the HPI. Exam Narrative: General: Alert, awake, afebrile, in no acute distress. HEENT: PERRL, no rhinorrhea, no post nasal drip, oropharynx clear. Neck: Trachea midline, no JVD, no lymphadenopathy. Cardiovascular: Regular rate and rhythm, no murmurs, rubs or gallops, no peripheral edema. Respiratory: Clear to auscultation bilaterally, no tachypnea, no wheezing, no rhonchi, no rubs, no respiratory distress. Abdomen: Soft, nontender, nondistended, no rebound, no guarding, no peritoneal signs. Musculoskeletal: No joint swelling or deformity, normal muscle tone. Skin: No rashes or petechia, no signs of infection. Psychiatric: Alert and oriented, normal behavior and judgment for situation. Neurological: Alert and oriented to person, place, and time. Follows all commands. No focal deficits, speech is clear and fluent. Course Vital Signs Vital signs: Vital Signs Temperature 98.5 F 01/07/25 03:39 Pulse Rate 85 01/07/25 03:39 Respiratory Rate 20 01/07/25 03:39 Blood Pressure 135/73 01/07/25 03:39 Pulse Oximetry 95 01/07/25 03:39 Oxygen Delivery Room Air 01/07/25 03:39 Temperature 98.5 F 01/07/25 03:46 Pulse Rate 82 01/07/25 03:46 Respiratory Rate 20 01/07/25 03:46 Blood Pressure 117/72 01/07/25 05:16 Pulse Oximetry 97 01/07/25 05:16 Oxygen Delivery Room Air 01/07/25 03:39 MDM - Back Pain/Injury MDM Narrative Medical decision making narrative: The patient was evaluated by myself in the emergency department. History is obtained from patient who is an independent historian and physical exam was performed. External medical records were reviewed at this time. IV was established and pertinent tests were ordered. Patient was administered 15 mg of IV Toradol and 4 mg of IV Zofran and 1 L IV fluid bolus with normal saline. Laboratory results obtained revealing no acute process. Urinalysis did reveal hematuria with 11-20 white blood cells. Patient was administered 1 dose of IV Rocephin in the emergency department. Imaging studies obtained included CT abdomen pelvis without IV contrast which was independently interpreted by me revealing: Impression: 2 mm distal left ureteral stone without significant hydronephrosis. Patient was informed of these findings at bedside. Instructed that he will need follow-up with urology and will be provided with medications help pass his kidney stone. Differential diagnosis considerations include kidney stones, musculoskeletal strain, herniated disc, pyelonephritis. Comorbidities impacting this visit include none. I have evaluated and discussed social determinants of health with the patient that could potentially impact subsequent diagnosis and treatment plans. On repeat assessment of the patient, reevaluation revealed that the patient is doing well and is in no acute distress. Patient symptoms have improved since he arrived to our emergency department. Repeat vital signs were all reviewed and noted to be stable. Differential diagnosis and treatment plan were discussed with the patient at bedside. Patient agrees with discussion and after shared medical decision making agrees with discharge. All questions were answered to the patient's satisfaction. Patient will follow up with Urology in 3-5 days. Script for Zofran, ibuprofen, Flomax and [place] were sent to patient's pharmacy to use as prescribed to help pass his kidney stone. Patient was provided with strict return precautions and instructed to return to the emergency department if any new or worsening symptoms develop. The patient was discharged in stable condition. Lab Data 01/07/25 04:10 01/07/25 04:10 Labs: Lab Results 01/07/25 Range/Units 04:10 WBC 9.4 (4.5-10.0) K/mm3 RBC 5.54 (4.6-6.20) M/mm3 Hgb 15.7 (14.0-18.0) g/dL Hct 48.1 (42.0-52.0) % MCV 86.8 (80-100) fl MCH 28.3 (26-34) pg MCHC 32.6 (32-36) g/dl RDW 13.2 (11.5-14.5) % Plt Count 308 (150-375) k/mm3 MPV 9.5 (7.4-10.4) fl Immature Gran % (Auto) 0.2 (0-0.5) % Neut % (Auto) 60.6 (45.5-73.1) % Lymph % (Auto) 28.3 (18.3-44.2) % [place] % (Auto) 5.2 (2.6-8.5) % Eos % (Auto) 5.1 H (0-4.4) % Baso % (Auto) 0.6 (0.2-1.2) % Lymph # (Auto) 2.66 (0.9-3.2) K/mm3 [place] # (Auto) 0.5 (0.1-0.6) K/mm3 Eos # (Auto) 0.5 H (0-0.3) K/mm3 Baso # (Auto) 0.1 (0.0-0.1) K/mm3 Abs Immat Gran (auto) 0.02 (0.00-0.031) K/mm3 Absolute Neuts (auto) 5.7 (1.3-6.7) K/mm3 Absolute Nucleated RBC 0.000 (0.0-0.012) K/mm3 Nucleated RBC % 0.0 (0.0-0.2) % Sodium 142 (137-145) mmol/L Potassium 4.4 (3.4-5.0) mmol/L Chloride 107 (98-107) mmol/L Carbon Dioxide 22 (22-30) mmol/L Anion Gap 13 H (4-12) mmol/L BUN 13 (9-20) mg/dL Creatinine 1.04 (0.7-1.3) mg/dL Estim Creat Clear Calc 143 ml/min Estimated GFR > 60 (59 - ) Glucose 120 H (65-110) mg/dL Calcium 9.7 (8.4-10.2) mg/dL Magnesium 1.9 (1.6-2.3) mg/dL Total Bilirubin 0.6 (0.2-1.3) mg/dL AST 55 (17-59) U/L ALT 139 H (6-50) U/L Alkaline Phosphatase 87 (38-126) U/L Total Protein 7.3 (6.3-8.2) g/dL Albumin 4.4 (3.5-5.1) g/dL Lipase 50 (23-300) U/L Urine Color Dark yellow (Yellow) Urine Appearance Clear (Clear) Urine pH 5.5 (5.0-9.0) Ur Specific [place] 1.037 H (1.001-1.035) Urine Protein 1+ H (Negative) mg/dL Urine Glucose (UA) Negative (Negative) mg/dL Urine Ketones Trace H (Negative) mg/dL Ur Blood (Man) 3+ H (Negative) Urine Nitrate Negative (Negative) Urine Bilirubin Negative (Negative) Urine Urobilinogen 1.0 (<2.0) mg/dL Add Ur Microanalysis Reviewed Leukocyte Esterase Rfl Trace H (Negative) KAI/UL Urine RBC >100 H (0-2) /hpf Urine WBC 11-20 H (0-3) /hpf Ur Squamous Epith Cells None seen (Few) /hpf Urine Bacteria None seen /hpf Urine Casts 3-5 Discharge Plan Discharge Clinical Impression: Kidney stone on left side Patient Disposition: Home Condition: Improved Instructions: Antibiotic Form, Kidney Stones (ED) Additional Instructions: Please follow-up with the urologist your provided with within the next 3-5 days. Return to emergency department if any new or worsening symptoms develop. Take the prescribed medications as instructed to help passed 2 kidney stone. Patient Language: Vietnamese Prescriptions: New hydrocodone-acetaminophen 5-325 mg tablet 1 tablet PO Q8H PRN (Reason: pain) Qty: 10 0RF ondansetron 4 mg tablet,disintegrating 4 mg PO Q8H PRN (Reason: nausea and vomiting) Qty: 14 0RF tamsulosin [Flomax] 0.4 mg capsule 0.4 mg PO DAILY Qty: 14 0RF ibuprofen 400 mg tablet 400 mg PO Q6H PRN (Reason: pain) Qty: 20 0RF No Action sertraline 25 mg Tablet 25 mg PO DAILY levothyroxine 25 mcg Tablet 25 mcg PO DAILY Follow-up/Referrals: Juan Carlos Julio MD [Physician] - 3 Days PHYSICIAN NOT ON STAFF,NONSTAFF [Primary Care Provider] - Time of Disposition: 06:01
[2025-01-07 04:39] LABS: Add Urine Microscopic? YES; Appearance Urine Clear (Clear); Glucose Urine UA Negative (Negative); Leukocyte Esterase Ur Trace LEU/UL (Negative); Need Manual Microscopic Reviewed; Nitrate Urine Negative (Negative); Specific Grav Ur 1.037 (1.001-1.035)
[2025-01-07 04:42] LABS: Alanine Aminotransferase 139 U/L (6-50); Albumin Level 4.4 g/dL (3.5-5.1); Alkaline Phosphatase 87 U/L (38-126); Anion Gap 13 mmol/L (4-12); Aspartate Amino Transferase 55 U/L (17-59); Bilirubin,Total 0.6 mg/dL (0.2-1.3); Blood Urea Nitrogen 13 mg/dL (9-20); Calcium 9.7 mg/dL (8.4-10.2); Carbon Dioxide 22 mmol/L (22-30); Chloride 107 mmol/L (98-107); Estimated CRCL calculation 143 ml/min; Estimated Glomerular Filt Rate > 60; Glucose 120 mg/dL (65-110); Lipase 50 U/L (23-300); Magnesium 1.9 mg/dL (1.6-2.3); Potassium 4.4 mmol/L (3.4-5.0); Sodium 142 mmol/L (137-145); Total Protein 7.3 g/dL (6.3-8.2)
[2025-01-07 05:10] VITALS: BP 118/70; O2SAT 97
[2025-01-07 05:16] VITALS: BP 117/72; O2SAT 97
[2025-01-07] MEDS: cefTRIAXone 1 GM in SODIUM CHLORIDE 0.9% IV 50 ML 100 ML IVPB (05:33)
[2025-01-07 06:15] VITALS: BP 114/52; PULSE 76; RESP 16; TEMP 37.1; O2SAT 97
== END 2025-01-07 06:08 | disposition home or self-care (01) ==
PROVIDERS: Emergency Provider Emergency Medicine
DX: N20.1 Calculus of ureter (principal)
CPT/HCPCS: 36415; 74176; 80053; 81001; 83690; 83735; 85025; 87086; 96361; 96365; 96375; 99284; J0696; J1885; J2405; J7030